=== PATIENT | female | born 1985 | race Caucasian/White ===

== ENCOUNTER → 2022-01-01 13:51 | Outpatient (CLI) | payer OTHER, SELFPAY ==
--- NOTE | ~2022-01-01 | XR_ITS ---
EXAMINATION: XR lumbar spine 6V w bending DATE: 01/01/2022 14:15 INDICATION: Low back pain TECHNIQUE: Anteroposterior, lateral in neutral, flexion and extension, and bilateral oblique views of the lumbar spine, and cone-down lateral view of the lumbosacral junction were obtained. COMPARISON: None. FINDINGS: There is no fracture, dislocation, or subluxation. No laxity is present with flexion or ext ension. The vertebral body heights are normal. There is mild loss of intervertebral disc space height at L1-2 and L5-S1. Small degenerative osteophytes project from the anterior endplates of multiple ve rtebral bodies. There is mild to moderate facet osteoarthritis of the lower lumbar spine. The bowel g as pattern is normal. IMPRESSION: 1. Mild lumbar spondylosis without acute findings. Reviewed, dictated and finalized at location B.
== END ==
PROVIDERS: PCP Family Medicine; Visit Provider Family Medicine
DX: M47.26 Other spondylosis with radiculopathy, lumbar region (principal)
CPT/HCPCS: 72114

== ENCOUNTER 2024-02-18 16:05 | Outpatient (CLI) | payer OTHER, SELFPAY ==
--- NOTE | ~2024-02-18 | XR_ITS ---
XR lumbar spine min 4V 02/18/2024 16:34 Indication: Radiculopathy Procedure: 5 views lumbar spine Comparison: 01/01/2022 Findings: There is disc narrowing at L4-5 and L5-S1. There is facet hypertrophy at these levels. No f racture, subluxation or spondylolisthesis. Sacral foramen are symmetric. Pedicles intact. Impression: 1: Mild lumbar spondylosis. Reviewed, dictated and finalized at location B. Impression: 1: Mild lumbar spondylosis.
== END 2024-02-18 16:06 ==
PROVIDERS: PCP Family Medicine; Visit Provider Family Medicine
DX: M47.26 Other spondylosis with radiculopathy, lumbar region (principal)
CPT/HCPCS: 72110

== ENCOUNTER 2024-03-04 13:29 | Outpatient (CLI) | payer OTHER, SELFPAY ==
--- NOTE | ~2024-03-04 | MR_ITS ---
EXAMINATION: MR lumbar spine wo con DATE: 03/04/2024 14:00 INDICATION: Radiculopathy, lumbar region. Low back pain. TECHNIQUE: Magnetic resonance imaging (MRI) of the lumbar spine was performed without intravenous con trast. Sequences included sagittal T2-weighted FSE, sagittal T2-weighted FS FSE, sagittal T1-weighted FSE, and axial T2-weighted FSE. COMPARISON: Lumbar spine radiographs 02/18/2024 FINDINGS: Alignment is normal. Vertebral body heights are normal. Intervertebral disc heights are nor mal. The distal spinal cord signal intensity is normal. The conus medullaris is at T12-L1. The follow ing disc levels are specifically discussed: L1-L2: The disc does not extend beyond the endplate margin. There is mild bilateral facet joint osteo arthritis. There is no neural foraminal stenosis. There is no central canal stenosis. L2-L3: The disc does not extend beyond the endplate margin. There is moderate bilateral facet joint o steoarthritis. There is no neural foraminal stenosis. There is no central canal stenosis. L3-L4: The disc does not extend beyond the endplate margin. There is mild bilateral facet joint osteo arthritis. There is no neural foraminal stenosis. There is no central canal stenosis. L4-L5: The disc is bulging and has an annular fissure. There is moderate right severe left facet join t osteoarthritis. There is mild bilateral neural foraminal stenosis. There is no central canal stenos is. L5-S1: The disc is bulging. There is mild right and severe left facet joint osteoarthritis. There is mild bilateral neural foraminal stenosis. There is mild central canal stenosis. IMPRESSION: 1. Mild lumbar spondylosis. Reviewed, dictated and finalized at location A. IMPRESSION: 1. Mild lumbar spondylosis.
== END 2024-03-04 13:30 | disposition home or self-care (01) ==
LOC: GOSHIMG 13:31
PROVIDERS: PCP Family Medicine; Visit Provider Family Medicine
DX: M43.06 Spondylolysis, lumbar region (principal)
CPT/HCPCS: 72148

== ENCOUNTER 2024-03-10 14:12 | Outpatient (CLI) | payer OTHER, SELFPAY ==
[2024-03-10 14:59] LABS: Hematocrit 34.6 % (37.0-47.0); Hemoglobin 11.5 g/dL (12.0-15.0); Mean Corpuscular HGB Conc 33.2 g/dl (32-36); Mean Corpuscular Hemoglobin 32.4 pg (26-34); Mean Corpuscular Volume 97.5 fl (80-100); Mean Platelet Volume 9.4 fl (7.4-10.4); Platelet Count Result 251 k/mm3 (150-375); Red Blood Count 3.55 M/mm3 (4.2-5.4); Red Cell Distribution Width 12.3 % (11.5-14.5); White Blood Count 5.1 K/mm3 (4.5-10.0)
[2024-03-10 15:59] LABS: Vitamin D 25 Hydroxy 41.5 ng/mL
[2024-03-12 02:08] LABS: FSH 14.8 mIU/mL; LH 7.3 mIU/mL
[2024-03-12 04:13] LABS: Progesterone <0.5 ng/mL
[2024-03-16 18:59] LABS: Testosterone Free 1.4 pg/mL (0.1-6.4); Testosterone Total 14 ng/dL (2-45)
== END 2024-03-10 14:13 | disposition home or self-care (01) ==
PROVIDERS: PCP Family Medicine; Visit Provider Obstetrics & Gynecology
DX: N92.0 Excessive and frequent menstruation with regular cycle (principal); L65.9 Nonscarring hair loss, unspecified
CPT/HCPCS: 36415; 82306; 83001; 83002; 84144; 84402; 84403; 84443; 85027

== ENCOUNTER 2024-05-18 09:41 | Day surgery (SDC) | payer OTHER, SELFPAY ==
[2024-05-18 10:18] VITALS: BP 142/79; PULSE 81; RESP 18; TEMP 37.1; O2SAT 100
[2024-05-18] MEDS: LACTATED RINGERS 1,000 ML 150 ML IV CONT (10:35)
--- NOTE | 2024-05-18 11:15 | P.PNAN_ITS ---
Anes - Initial Pre Proc Eval Procedure: Operation Date: 05/18/24 11:30 Proposed Procedures p Diagnostic Colonoscopy - Jamal Galloway MD Date/Time: 05/18/24 11:15 Surgeon: Jamal Galloway MD Pre Op Diagnosis: Noninfective Gastroenteritis and Colitis Patient Data Age: 38 Gender: F Height: 1.7 m Weight: 80.7 kg Last Vital Signs Temp 37.1 C 05/18/24 10:18 Pulse 81 05/18/24 10:18 Resp 18 05/18/24 10:18 BP 142/79 H 05/18/24 10:18 Pulse Ox 100 05/18/24 10:18 O2 Del Method Room Air 05/18/24 10:18 Allergies Allergy/AdvReac Type Severity Reaction Status Date / Time No Known Allergies Allergy Verified 05/18/24 10:32 Home Medications Medication Instructions Recorded Confirmed Type gabapentin 300 mg capsule 300 mg PO BID #60 caps 02/18/24 05/18/24 Rx colestipol 1 gram tablet (Colestid) 1 g PO BID #60 tabs 03/22/24 05/18/24 Rx Iron (ferrous sulfate) 1 tab-cap PO DIRECTED 04/29/24 05/18/24 History multivitamin 1 tablet PO DAILY 04/29/24 05/18/24 History Patient hx anesthesia problems: none Family hx anesthesia problems: none Results Review: All pre-operative results and documents have been reviewed as part of the pre- operative evaluation. 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 Encounter for general adult medical examination w/o abnormal findings IUP (intrauterine ), incidental AB1 Surgical History Surgical History H/O tubal ligation Family History Family History Mother Family history of hypercholesterolemia Hypertension Father Alcoholism Social History Social History Smoking status: Never smoker Alcohol intake: current Drinks per week: 3 Alcohol use details: 1 bottle a day Substance use: never Substance use type: does not use Living arrangements: with family Occupation/Education: occupation Additional occupation/education comments: [place] at [employer] Final PreProcedure Day of Procedure 05/18/24 11:15 Patient weight: overweight Heart: regular rate and rhythm Lungs: clear to auscultation Airway: Mallampati scale class II Neurological: alert and oriented Last oral intake: >/= 8 hours ASA classification: II Emergent: no Anesthetic plan: proceed Anesthesia type and monitoring: general GIVS and standard monitoring Results Review: All pre-operative results and documents have been reviewed as part of the pre- operative evaluation. Informed Consent: The patient's anesthetic plan and its attendant risks and benefits were d iscussed with the patient/family/POA. Questions were solicited and answers provided to the satisfaction of the patient/family/POA.
--- NOTE | 2024-05-18 11:15 | P.HP_ITS ---
History of Present Illness History of Present Illness Consent: Risks, benefits, and alternatives have been discussed and questions answered. Patient agrees to proceed with procedure. Chief complaint: Diarrhea Narrative: Radha Vieira is a 38 year old female for colonoscopy. Patient has a history of chronic diarrhea over the last 2 years. She states she has significant urgency shortly after eating. Stools are typically soft or occasionally liquid. Never has bleeding. She denies abdominal or rectal pain. Recently tried cholestyramine with no change in symptoms. She reports her diet is somewhat irregular is not getting enough fruits and vegetables. Family history is noncontributory. Workup is currently in progress and colonoscopy was requested. 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 Encounter for general adult medical examination w/o abnormal findings IUP (intrauterine ), incidental AB1 Surgical History Surgical History H/O tubal ligation Family History Family History Mother Family history of hypercholesterolemia Hypertension Father Alcoholism Social History Social History Smoking status: Never smoker Alcohol intake: current Drinks per week: 3 Alcohol use details: 1 bottle a day Substance use: never Substance use type: does not use Living arrangements: with family Occupation/Education: occupation Additional occupation/education comments: [place] at [employer] Meds Home Medications and Allergies Home Medications Medication Instructions Recorded Confirmed Type gabapentin 300 mg capsule 300 mg PO BID #60 caps 02/18/24 05/18/24 Rx colestipol 1 gram tablet (Colestid) 1 g PO BID #60 tabs 03/22/24 05/18/24 Rx Iron (ferrous sulfate) 1 tab-cap PO DIRECTED 04/29/24 05/18/24 History multivitamin 1 tablet PO DAILY 04/29/24 05/18/24 History Allergies Allergy/AdvReac Type Severity Reaction Status Date / Time No Known Allergies Allergy Verified 05/18/24 10:32 Vital Signs Vital Signs - 24 hr 05/18/24 10:18 Temperature 98.8 F Pulse Rate 81 Respiratory Rate 18 Blood Pressure 142/79 H Pulse Oximetry 100 Oxygen Delivery Room Air Exam Narrative: Physical exam reveals patient to be alert. Vital signs stable. HEENT exam is unremarkable. Patient is anicteric. Lungs are clear to auscultation and to percussion. Heart is without murmur or extra sounds. Abdomen bowel sounds are present soft nontender with no organomegaly. Digital external rectal exam normal. Assessment and Plan Assessment and plan (1) Chronic diarrhea: Code(s): K52.9 - Noninfective gastroenteritis and colitis, unspecified Status: Acute Assessment and Plan: Chronic diarrhea. This may represent irritable bowel syndrome. Colonoscopy re quested will be performed today. Consider fiber supplementation. Further recommendations may be given after endoscopy.
[2024-05-18 11:44] VITALS: BP 112/83; PULSE 93; RESP 16; O2SAT 100
[2024-05-18 11:54] VITALS: BP 123/89; PULSE 78; RESP 16; O2SAT 100
[2024-05-18 12:04] VITALS: BP 125/85; PULSE 72; RESP 16; O2SAT 100
--- NOTE | 2024-05-18 12:18 | WPDANESPN ---
Anes - Prog Note Post-Op Date/Time: 05/18/24 12:18 Cardiovascular status: normal Respiratory status: normal Airway patency: baseline Mental status: baseline Post-Op hydration status: normal Vital Signs: Last Vital Signs Temp 37.1 C 05/18/24 10:18 Pulse 72 05/18/24 12:04 Resp 16 05/18/24 12:04 BP 125/85 05/18/24 12:04 Pulse Ox 100 05/18/24 12:04 O2 Del Method Room Air 05/18/24 12:04 Pain Score (VAS): 0/10 I/O: Intake & Output 05/17/24 05/18/24 05/18/24 23:59 07:59 15:59 Intake Total 450 Balance 450 Patient Feedback: Patient satisfied with anesthetic care.
== END 2024-05-18 12:10 | disposition home or self-care (01) ==
PROVIDERS: PCP Family Medicine; Visit Provider Internal Medicine Gastroenterology
PROC: 0DJD8ZZ Inspection of Lower Intestinal Tract, Via Natural or Artificial Opening Endoscopic (ICD-10-PCS; CPT 45378; principal; 2024-05-18 11:30)
DX: R19.7 Diarrhea, unspecified (principal)
CPT/HCPCS: 45378